=== PATIENT | male | born 1975 | race Caucasian/White ===

== ENCOUNTER → 2020-04-05 | Outpatient (CLI) | payer OTHER, SELFPAY | END | disposition home or self-care (01) | PROVIDERS: Referring Provider Dermatology; Visit Provider Dermatology | DX: L03.312 Cellulitis of back [any part except buttock and flank] (principal); C44.91 Basal cell carcinoma of skin, unspecified | CPT/HCPCS: 87070; 87077; 87186; 87205 ==